=== PATIENT | female | born 1980 | race Hispanic/Latino ===

== ENCOUNTER 2022-04-17 00:46 | Emergency (ER) | payer BC ==
[2022-04-17 01:31] LABS: Hematocrit 42.5 % (36.0-45.0); Lymphocytes % 37.9 % (15.3-44.8); MPV 7.7 fL (7.6-11.3); RBC Red Blood Cell Count 4.93 M/uL (3.86-4.86)
[2022-04-17 01:39] LABS: Potassium 3.6 mmol/L (3.5-5.1); Troponin High Sensitivity 3.2 pg/mL (<58.9)
[2022-04-17] MEDS ORDERED: NA CHLORIDE 0.9% 1,000 ML ONE (03:08)
--- NOTE | 2022-04-17 04:57 | EDPHYS ---
Physician Documentation [facility] Name: Stephanie Burns Age: 41 yrs Sex: Female : 1980 Arrival Date: 04/17/2022 Time: 00:47 Bed 5 Private MD: ED Physician Kasi Morales [employer] STOCK CLERK: 04/17 00:59 LMP 03/2022 kd3 Historical: - Allergies: 00:59 No Known Allergies; kd3 - Home Meds: 00:59 None [Active]; kd3 - PMHx: 00:59 None; kd3 - PSHx: 00:59 None; kd3 - Immunization history:: Adult Immunizations up to date, Client reports receiving the 2nd dose of the Covid vaccine. - Social history:: Smoking status: unknown. Vital Signs: 00:56 BP 166 / 107; Pulse 101; Resp 18; Temp 97.7; Pulse Ox 100% on R/A; Weight 81.65 kg; kd3 Height 5 ft. 6 in. (167.64 cm); Pain 7/10; 01:46 BP 151 / 99; Pulse 93; Resp 13 S; Pulse Ox 100% on R/A; kl 03:36 BP 126 / 87; Pulse 90; Resp 20 S; Pulse Ox 99% on R/A; as6 04:23 BP 143 / 81; Pulse 95; Resp 13; Pulse Ox 100% on R/A; mw2 04:58 BP 122 / 75; Pulse 84; Resp 19 S; Pulse Ox 99% on R/A; as6 00:56 Body Mass Index 29.05 (81.65 kg, 167.64 cm) kd3 MDM: 04:56 Patient medically screened. [facility] [address] 04/17 00:56 Order name: Basic Metabolic Panel; Complete Time: 04:11 3 04/17 00:56 Order name: CBC with Diff; Complete Time: 04:11 3 04/17 00:56 Order name: Troponin HS; Complete Time: 04:11 3 04/17 00:56 Order name: XRAY Chest (1 view) 3 04/17 02:57 Order name: D-Dimer; Complete Time: 04:11 kdr 04/17 00:56 Order name: EKG; Complete Time: 00:57 3 04/17 00:56 Order name: Cardiac monitoring; Complete Time: 00:58 04/17 00:56 Order name: EKG - Nurse/Tech; Complete Time: 01:04/17 00:56 Order name: IV Saline Lock; Complete Time: 01:04/17 00:56 Order name: Labs collected and sent; Complete Time: 01:04/17 00:56 Order name: O2 Per Protocol; Complete Time: 00:58 04/17 00:56 Order name: O2 Sat Monitoring; Complete Time: 00:58 Administered Medications: 03:08 Drug: NS 0.9% 1000 ml Route: IV; Rate: 1 bolus; Site: right antecubital; aa9 05:10 Follow up: Response: No adverse reaction; IV Status: Completed infusion; IV Intake: aa9 1000ml Disposition Summary: 04/17/22 04:56 Discharge Ordered Location: Home kdr Problem: new kdr Symptoms: have improved kdr Condition: Stable kdr Diagnosis - Palpitations kdr - Shortness of breath kdr - Anxiety disorder, unspecified kdr - Paresthesia of skin kdr Followup: kdr - With: Private Physician - When: 2 - 3 days - Reason: If symptoms return, Further diagnostic work-up, Recheck today's complaints, Continuance of care, Re-evaluation by your physician Discharge Instructions: - Discharge Summary Sheet kdr - Shortness of Breath, Adult, Dquo-[id number]-Febe kdr - Palpitations, Hixq-[id number] kdr - Paresthesia, Teff-tg-Tobf kdr - Generalized Anxiety Disorder, Adult kdr Forms: - Medication Reconciliation Form kdr - Thank You Letter kdr Signatures: Dispatcher [employer] Kasi Callahan MD MD kdr Doucette, Kyli, RN RN kd3 Gricelda Morley, RN RN aa9
--- NOTE | 2022-04-17 04:57 | ER ---
Nurse's Notes [facility] Name: Stephanie Burns Age: 41 yrs Sex: Female : 1980 Arrival Date: 04/17/2022 Time: 00:47 Bed 5 Private MD: Diagnosis: Palpitations;Shortness of breath;Anxiety disorder, unspecified;Paresthesia of skin Presentation: 04/17 00:56 Chief complaint: Patient states: I was sleeping and about 30 or so minutes ago I woke kd3 up and i thought i was having issues breathing and my chest kind of hurt. my right arm and the right side of my neck kind of felt a little numb too. Coronavirus screen: Vaccine status: Patient reports receiving the 2nd dose of the covid vaccine. Ebola Screen: No symptoms or risks identified at this time. Initial Sepsis Screen: Does the patient meet any 2 criteria? No. Patient's initial sepsis screen is negative. Does the patient have a suspected source of infection? No. Patient's initial sepsis screen is negative. Risk Assessment: Do you want to hurt yourself or someone else?. Risk Assessment: Do you want to hurt yourself or someone else? Patient reports no desire to harm self or others. Onset of symptoms was April 17, 2022. 00:56 Method Of Arrival: Wheelchair kd3 00:56 Acuity: VANESSA 3 kd3 Triage Assessment: 00:59 General: Appears uncomfortable, Behavior is cooperative, anxious. Pain: Complains of kd3 pain in chest. Respiratory: Reports shortness of breath at rest Onset: The symptoms/episode began/occurred today, the patient has moderate shortness of breath. 00:59 Neuro: Level of Consciousness is awake, alert, obeys commands, Oriented to person, kd3 place, time, situation, Construction Materials Tester are equal bilaterally Moves all extremities. Full function Gait is steady, Speech Facial symmetry appears normal. DEADENER: 00:59 LMP 03/2022 kd3 Historical: - Allergies: 00:59 No Known Allergies; kd3 - Home Meds: 00:59 None [Active]; kd3 - PMHx: 00:59 None; kd3 - PSHx: 00:59 None; kd3 - Immunization history:: Adult Immunizations up to date, Client reports receiving the 2nd dose of the Covid vaccine. - Social history:: Smoking status: unknown. Screenin:01 Abuse screen: Denies threats or abuse. Denies injuries from another. Nutritional kd3 screening: No deficits noted. Tuberculosis screening: No symptoms or risk factors identified. Fall Risk None identified. Assessment: 01:17 General: Appears distressed, uncomfortable, Behavior is cooperative, anxious, crying. aa9 Pain: Complains of pain in chest and neck. Cardiovascular: Reports chest pain, shortness of breath, Patient's skin is warm and dry. Rhythm is sinus tachycardia Chest pain quality is pressure, sharp, began 1 hour prior to arrival. Respiratory: Airway is patent Respiratory effort is even, unlabored, Respiratory pattern is hyperventilation. Derm: Skin is flushed. 03:37 Reassessment: Patient is alert, oriented x 3, equal unlabored respirations, skin as6 warm/dry/pink. Patient states feeling better. 05:09 Respiratory:. Respiratory: Breath sounds are clear. aa9 Vital Signs: 00:56 BP 166 / 107; Pulse 101; Resp 18; Temp 97.7; Pulse Ox 100% on R/A; Weight 81.65 kg; kd3 Height 5 ft. 6 in. (167.64 cm); Pain 7/10; 01:46 BP 151 / 99; Pulse 93; Resp 13 S; Pulse Ox 100% on R/A; kl 03:36 BP 126 / 87; Pulse 90; Resp 20 S; Pulse Ox 99% on R/A; as6 04:23 BP 143 / 81; Pulse 95; Resp 13; Pulse Ox 100% on R/A; mw2 04:58 BP 122 / 75; Pulse 84; Resp 19 S; Pulse Ox 99% on R/A; as6 00:56 Body Mass Index 29.05 (81.65 kg, 167.64 cm) kd3 ED Course: 00:47 Patient arrived in ED. bp1 00:50 Renny Hughes RN is Primary Nurse. as6 00:54 Kasi Morales MD is Attending Physician. kdr 00:58 Triage completed. kd3 01:01 Arm band placed on right wrist. kd3 01:01 Patient has correct armband on for positive identification. Placed in gown. Bed in low kd3 position. Call light in reach. 01:16 Inserted saline lock: 18 gauge in right antecubital area, using aseptic technique. aa9 Blood collected. 01:17 Basic Metabolic Panel Sent. aa9 01:17 CBC with Diff Sent. aa9 01:17 Troponin HS Sent. aa9 01:22 XRAY Chest (1 view) In Process Unspecified. EDMS 05:09 No provider procedures requiring assistance completed. IV discontinued, intact, aa9 bleeding controlled, No redness/swelling at site. Pressure dressing applied. Administered Medications: 03:08 Drug: NS 0.9% 1000 ml Route: IV; Rate: 1 bolus; Site: right antecubital; aa9 05:10 Follow up: Response: No adverse reaction; IV Status: Completed infusion; IV Intake: aa9 1000ml Medication: 05:10 VIS not applicable for this client. aa9 Intake: 05:10 IV: 1000ml; Total: 1000ml. aa9 Outcome: 04:56 Discharge ordered by . kdr 05:09 Condition: stable aa9 05:09 Discharged to home ambulatory. aa9 05:09 Discharge instructions given to patient, significant other, Instructed on discharge instructions, follow up and referral plans. 05:11 Patient left the ED. aa9 Signatures: Dispatcher [employer] EDMS Florecita Oliveira, RN RN Kasi Polanco MD MD kdr [place], MyKena mw2 Qiana Mitchell Ashby, RN RN as6 Chery Marin RN RN kd3 Gricelda Morley RN RN aa9
[2022-04-17 05:19] VITALS: TEMP 97.7
[2022-04-17 05:29] VITALS: BP 122/75; O2SAT 99
--- NOTE | 2022-04-17 12:14 | RAD REPORT ---
EXAM DESCRIPTION: RAD - Chest Single View - 04/17/2022 1:21 am CLINICAL HISTORY: SOB TECHNIQUE: Frontal view of the chest. COMPARISON: No relevant prior studies available. FINDINGS: Lungs: Unremarkable. No consolidation. Pleural space: Unremarkable. No pneumothorax. Heart: Unremarkable. No cardiomegaly. Mediastinum: Unremarkable. Bones/joints: Unremarkable. IMPRESSION: No acute disease. Electronically signed by: Vance Lebron MD 04/17/2022 1:38 AM CDT Due to temporary technical issues with the PACS/Fluency reporting system, reports are being signed by the in house radiologist without review as a courtesy to ensure prompt reporting. The interpreting r adiologist is fully responsible for the content of the report.
--- NOTE | 2022-04-17 12:53 | EKG ---
Test Date: 2022-04-17 Test Time: 00:58:13 Laboratory Technical Specialist: MEASUREMENT RESULTS: Intervals: Rate: 102 NJ: 122 QRSD: 78 QT: 344 QTc: 448 [place]: P: NJ: 122 QRS: 188 T: 200 INTERPRETIVE STATEMENTS: Sinus tachycardia Right superior axis deviation Inferior infarct, age undetermined Abnormal ECG No previous ECG available for comparison Electronically Signed On 04-17-22 12:52:44 CDT by Adolfo Timmons
== END 2022-04-17 05:11 | disposition home or self-care (01) ==
LOC: ER 00:46
DX: R06.02 Shortness of breath (principal); R00.2 Palpitations; F41.9 Anxiety disorder, unspecified; R20.2 Paresthesia of skin
CPT/HCPCS: 93005; 85025; 80048; 36415; 85379; 84484; 71045; J7030

== ENCOUNTER 2024-02-10 23:00 | Emergency (ER) | payer BC ==
--- OUTSIDE RECORDS SUMMARY | 2024-02-10 23:04 | XMS REPORT | Continuity of Care Document ---
Author Name Unknown Address [address] [place] [address] [facility] thconnect Address [address] [place] [address] Care Team Providers Care Metal Hanging Helper Name Role Phone TAE BOWSER Primary Care Physician Unavailab le [email or web address]_Kadiyala_S Attending Clinician UnavailVance Baker MD Attending Clinician VANCE MCRAE Attending Clinician Unavailable WILFRED_GCBZW_Kadiyala_S Admitting Clinician UnavailVANCE Baker Admitting Clinician Unavailable Payers Payer Name Policy Type Policy Number Effective Date Expirati on Date Source Problems Condition Name Condition Details Condition Category Status Onset Date Resolution Date Last Treatment Date Treating Clinician Comments Source No known active problems No known active problems Disease [facility] Allergies, Adverse Reactions, Alerts Allergy Name Allergy Type Status Severity Reaction(s) Onset Date Inactive Date Treating Clinician Comments Source NO KNOWN ALLERGIE S Drug Class Active [facility] Social History Social Habit Start Date Stop Date Quantity Comments Source Exposure to SARS-CoV-2 (event) 2022-09-16 00:00:00 2022-09-26 21:49:00 Not sure [facility] Sex Ass[birth year] At 1980 00:00:00 1980 00:00:00 [facility] Smoking Status Start Date Stop Date Source Tobacco smoking consumption unknown [facility] Medications Ordered Medication Name Filled Medication Name Start Date Stop Date Current Medication? Ordering Clinician Indication Dosage Frequency Signature (SIG) Comments Components Source No known medications 2021-10 21:54: 21 No No known medication s [facility] Vital Signs Vital Name Observation Time Observation Value Comments Be chou Systolic blood pressure 2022-09-27 06:37:00 143 mm[Hg] [facility] Diastolic blood pressure 2022-09-27 06:37:00 83 mm[Hg] [facility] Heart rate 2022-09-27 06:37:00 104 /min [facility] Respiratory rate 2022-09-27 06:37:00 20 /min [facility] Oxygen saturation in Arterial blood by Pulse oximetry 2022-09-27 06:37:00 97 /min [facility] Body temperature 2022-09-27 03:52:00 37.5 Magali [facility] Body height 2022-09-27 03:52:00 167.6 cm [facility] Body weight 2022-09-27 03:52:00 78.472 kg [facility] BMI 2022-09-27 03:52:00 27.92 kg/m2 [facility] Procedures Procedure Date / Time Performed Performing Clinicia n Source EKG-12 LEAD 2022-09-27 06:39:11 Vance Mcrae [facility] XR CHEST 1 VW 2022-09-27 05:49:47 Vance Mcrae [facility] ACUTE CARE ARTERIAL BLOOD GAS 2022-09-27 04:33:00 Vance Mcrae [facility] POCT TEST 2022-09-27 04:26:00 Vance Mcrae [facility] LIPASE 2022-09-27 04:23:00 Vance Mcrae [facility] TROPONIN I 2022-09-27 04:23:00 Vance Mcrae [facility] COMP. METABOLIC PANEL ([id number]) 2022-09-27 04:23:00 Vance Mcrae [facility] CBC WITH DIFF 2022-09-27 04:23:00 Vance Mcrae [facility] D-DIMER 2022-09-27 04:23:00 Angelica Mcraefelixhui Lr [facility] N-TERMINAL PRO-BNP 2022-09-27 04:23:00 Elviajuan manuelAngelica gonzaleskarina Be [facility] NOTICE OF PRIVACY PRACTICES 2022-09-27 03:48:14 Doctor Unassigned, Mott [facility] CONSENT/REFUSAL FOR DIAGNOSIS AND TREATMENT 2022-09-27 03:46:24 Doctor Unassigned, Mott [facility] Encounters Start Date/Time End Date/Time Encounter Type Admission Type Attending Clinicians Care Facility Care Department Encounter ID Source 2023-08-16 00:00:00 2023-08-16 00:00:00 Outpatient GC_GCBZW_Ka diyala_S [facility] [id number] [facility] 2022-09-26 21:55:00 2022-09-27 00:39:00 Emergency Vance Mcrae [facility] [id number] [facility] 2022-09-26 21:55:00 2022-09-27 00:39:00 Emergency X VANCE MCRAE [facility] ERT [id number] [facility] Results Test Description Test Time Test Comments Results Result Co mments Source [facility] [id number] 05:11:49* Test Item Value Reference Range Interpretation Comments TROPONIN I (test code = 1029686906) 0.001 ng/mL See_Comment [Automated message] The system which generated this result transmitted reference range: <=0.034. The reference range was not used to interpret this result as normal/abnormal. SHWETHA (test code = SHWETHA) Reference (Normal) Range (defined by the 99th percentile reference limit): <= 0.034 ng/mL Note: Cardiac troponin begins to rise 3-4 hours after the onset of ischemia. Repeat in 4-6 hours if the sample was drawn within 3-4 hours of the onset of the symptom and found normal. Diagnosis of myocardial injury is made with acute changes in cTn concentrations with at least one serial sample above the 99th percentile upper reference limit (URL), taken together with the patient's clinical presentation. Biotin has been reported to cause a negative bias, interpret results relative to patient's use of biotin. Lab Interpretation (test code = 49998-0) Normal [facility] [id number] 05:08:53* Test Item Value Reference Range Interpretation Comme nts NT-proBNP (test code = 3724114906) 26 pg/mL See_Comment [Automated message] The system which generated this result transmitted reference range: <=125. The reference range was not used to interpret this result as normal/abnormal. SHWETHA (test code = SHWETHA) Biotin has been reported to cause a negative bias, interpret results relative to patient's use of biotin. Lab Interpretation (test code = 89436-9) Normal [facility] WITH [id number] 05:01:52* Test Item Value Reference Range Interpretation Comme nts WBC (test code = 6690-2) See_Comment [Automated [employer]] The system which generated this result transmitted reference range: 4.30 - 11.10 10*3/?L. The reference range was not used to interpret this result as normal/abnormal. RBC (test code = 789-8) See_Comment [Automated [employer]] The system which generated this result transmitted reference range: 3.93 - 5.25 10*6/?L. The reference range was not used to interpret this result as normal/abnormal. HGB (test code = 718-7) 14.2 g/dL 11.6-15.0 HCT (test code = 4544-3) 42.0 % 35.7-45.2 MCV (test code = 787-2) 87.9 fL 80.6-95.5 MCH (test code = 785-6) 29.7 pg 25.9-32.8 MCHC (test code = 786-4) 33.8 g/dL 31.6-35.1 RDW-SD (test code = 83784-7) 40.3 fL 39.0-49.9 RDW-CV (test code = 788-0) 12.6 % 12.0-15.5 PLT (test code = 777-3) See_Comment H [Automated messa ge] The system which generated this result transmitted reference range: 166 - 358 10*3/?L. The reference range was not used to interpret this result as normal/abnormal. MPV (test code = 97808-3) 9.9 fL 9.5-12.9 NRBC/100 WBC (test code = 5088928462) See_Comment [Automated me ssage] The system which generated this result transmitted reference range: 0.0 - 10.0 /100 WBCs. The reference range was not used to interpret this result as normal/abnormal. NRBC x10^3 (test code = 0238575491) See_Comment [Automated messa ge] The system which generated this result transmitted reference range: 10*3/?L. The reference range was not used to interpret this result as normal/abnormal. GRAN MAT (NEUT) % (test code = 770-8) 49.7 % IMM GRAN % (test code = 5841827536) 0.30 % LYMPH % (test code = 736-9) 39.5 % MONO % (test code = 5905-5) 8.7 % EOS % (test code = 713-8) 1.2 % BASO % (test code = 706-2) 0.6 % GRAN MAT x10^3(ANC) (test code = 0097036897) 4.66 10*3/uL 1.88-7.09 IMM GRAN x10^3 (test code = 2403701681) 0.03 10*3/uL 0.00-0.06 LYMPH x10^3 (test code = 731-0) 3.71 10*3/uL 1.32-3.29 H MONO x10^3 (test code = 742-7) 0.82 10*3/uL 0.33-0.92 EOS x10^3 (test code = 711-2) 0.11 10*3/uL 0.03-0.39 BASO x10^3 (test code = 704-7) 0.06 10*3/uL 0.01-0.07 Lab Interpretation (test code = 83120-8) Abnormal [facility]. METABOLIC PANEL (35229)2022-09-27 04:59:52* Test Item Value Reference Range Interpretation Comme nts NA (test code = 5433984942) 138 mmol/L 135-145 K (test code = 2296313226) 3.9 mmol/L 3.5-5.0 CL (test code = 8100436863) 105 mmol/L 98-108 CO2 TOTAL (test code = 7030684794) 23 mmol/L 23-31 AGAP (test code = 5900874315) 2-16 BUN (test code = 2637765231) 16 mg/dL 7-23 GLUCOSE (test code = 6903541020) 106 mg/dL 70-110 CREATININE (test code = 1845841621) 0.78 mg/dL 0.50-1.04 TOTAL BILI (test code = 6737688923) 0.5 mg/dL 0.1-1.1 CALCIUM (test code = 3664865865) 9.6 mg/dL 8.6-10.6 T PROTEIN (test code = 6099266663) 7.5 g/dL 6.3-8.2 ALBUMIN (test code = 1719889244) 4.6 g/dL 3.5-5.0 ALK PHOS (test code = 1844082301) 72 U/L 34-122 ALTv (test code = 1742-6) 25 U/L 5-35 AST(SGOT) (test code = 5076393488) 22 U/L 13-40 eGFR (test code = 8982544753) mL/min/1.73m2 SHWETHA (test code = SHWETHA) Association of Glomerular Filtration Rate (GFR) and Staging of Kidney Disease* + + +- +| GFR (mL/min/1.73 m2) ?| With Kidney Damage ?| ?Without Kidney Damage+ ------+ ----+ ------+| ?>90 ?| ?Stage one ?| ? Normal ?+ -+ + -+| ?60-89 ?| ?Stage two ?| ? Decreased GFR ? + + +- +| ?30-59 ?| ?Stage three ?| ? Stage three ? + + +- +| ?15-29 ?| ?Stage four ? | ? Stage four ?+ -+ + -+| ?<15 (or dialysis) ? ?| ?Stage five ? | ? Stage five ?+ -+ + -+ *Each stage assumes the associated GFR level has been in effect for at least three months. ?Stages 1 to 5, with or without kidney disease, indicate chronic kidney disease. Notes: Determination of stages one and two (with eGFR >59mL/min/1.73 m2) requires estimation of kidney damage for at least three months as defined by structural or functional abnormalities of the kidney, manifested by either:Pathological abnormalities or Markers of kidney damage (including abnormalities in the composition of the blood or urine or abnormalities in imaging tests). [facility] 04:59:32* Test Item Value Reference Range Interpretation Comme [facility] LIPASE (test code = 3372643983) 139 U/L 0-220 Lab Interpretation (test cod e = 69077-9) Normal [facility] [id number] 04:26:00* Test Item Value Reference Range Interpretation Comme nts POCT PREG (test code = 1605) Negative On board controls acceptable with C Line (test code = 3574) Present POCT PREG LOT # (test code = 3575) [id number] POCT PREG TEST DATE ( test code = 3576) 01/18/2024 Lab Interpretation (test cod e = 36826-9) Normal [facility]"
[2024-02-10] MEDS ORDERED: NA CHLORIDE 0.9% 500 ML ONE (23:24)
[2024-02-10] MEDS ORDERED: ASPIRIN 81 MG CHEWABLE TABLET ONE (23:24)
[2024-02-10] MEDS ORDERED: METOPROLOL TAR 50 MG TAB ONE (23:24)
[2024-02-10 23:39] LABS: Absolute Basophils 0.1 K/uL (0-0.5); Absolute Eosinophils 0.2 K/uL (0-0.5); Absolute Monocytes 0.8 K/uL (0.1-1.3); Absolute Neutrophil 5.1 K/uL (1.8-8.0); Basophils % 0.7 % (0-1.3); Hematocrit 40.7 % (36.0-45.0); Lymphocytes % 39.6 % (15.3-44.8); MCH 30.3 pg (27.0-35.0); MCHC 34.4 g/dL (32.0-36.0); MCV 88.2 fL (80-100); MPV 7.4 fL (7.6-11.3); Monocytes % 7.4 % (3.3-12.3); Neutrophils % 50.3 % (41.7-73.7); Nucleated Red Blood Cells % 0.1 % (0-0); Platelets 375 thou/uL (152-406); RBC Red Blood Cell Count 4.61 M/uL (3.86-4.86); Red Cell Distribution Width 12.6 % (12.1-15.2)
[2024-02-10 23:59] LABS: ALT/SGPT 37 U/L (13-56); AST/SGOT 18 U/L (15-37); Albumin 3.6 g/dL (3.4-5.0); Alkaline Phosphatase 63 U/L (45-117); Anion Gap 9.3 mEq/L (5.0-15.0); BUN Blood Urea Nitrogen 15 mg/dL (7-18); Bicarbonate 27 mEq/L (21-32); Bilirubin Total 0.4 mg/dL (0.2-1.0); Globulin 3.7 g/dL (2.3-3.5); Glomerular Filtration Rate 78 ml/min (=/>90); Glucose Level 108 mg/dL (74-106); Lipase 55 U/L (13-75); Magnesium 2.3 mg/dL (1.6-2.4); NT PRO-BNP 18 pg/mL (<125); Potassium 3.3 mEq/L (3.5-5.1); Protein, Total 7.3 g/dL (6.4-8.2); Sodium Level 137 mEq/L (136-145)
[2024-02-11 00:24] LABS: Bilirubin Direct < 0.1 mg/dL (0-0.2); Bilirubin Indirect, Calculated ND mg/dL (0.2-0.8); Troponin High Sensitivity < 3.0 pg/mL (<58.9)
[2024-02-11] MEDS ORDERED: POTASSIUM 25 MEQ EFFERV TAB ONE (00:41)
--- NOTE | 2024-02-11 00:44 | EDPHYS ---
Physician Documentation [facility] Name: Stephanie Teixeira Age: 43 yrs Sex: Female : 1980 Arrival Date: 02/10/2024 Time: 23:00 Bed 4 Private MD: ED Physician Pepe Jama HPI: 02/10 00:39 This 43 yrs old Female presents to ER via Ambulatory with complaints of tres Palpitations. 00:39 The patient presents with a history of heart racing. Context: The symptoms occur at [facility] rest. Onset: The symptoms/episode began/occurred just prior to arrival. Duration: The patient or guardian reports a single episode, that lasted 20 second(s). Modifying factors: The symptoms are aggravated by nothing. The symptoms are alleviated by nothing. Associated signs and symptoms: Pertinent positives: anxiety. Severity of symptoms: At their worst the symptoms were mild moderate in the emergency department the symptoms have improved moderately. The patient has experienced similar episodes in the past, several times. 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 - Infectious Disease History:: Denies. - Social history:: Smoking status: Patient denies any tobacco usage or history of. ROS: 02/10 00:40 Constitutional: Negative for fever, chills, and weight loss, Eyes: Negative for injury, tres pain, redness, and discharge, ENT: Negative for injury, pain, and discharge, Neck: Negative for injury, pain, and swelling, Respiratory: Negative for shortness of breath, cough, wheezing, and pleuritic chest pain, Abdomen/GI: Negative for abdominal pain, nausea, vomiting, diarrhea, and constipation, Back: Negative for injury and pain, : Negative for injury, bleeding, discharge, and swelling, MS/Extremity: Negative for injury and deformity, Skin: Negative for injury, rash, and discoloration, Neuro: Negative for headache, weakness, numbness, tingling, and seizure, Psych: Negative for depression, anxiety, suicide ideation, homicidal ideation, and hallucinations, Allergy/Immunology: Negative for hives, rash, and allergies, Endocrine: Negative for neck swelling, polydipsia, polyuria, polyphagia, and marked weight changes, Hematologic/Lymphatic: Negative for swollen nodes, abnormal bleeding, and unusual bruising, Cardiovascular: Positive for palpitations, Exam: 00:40 Constitutional: This is a well developed, well nourished patient who is awake, alert, tres and in no acute distress. Head/Face: Normocephalic, atraumatic. Eyes: Pupils equal round and reactive to light, extra-ocular motions intact. Lids and lashes normal. Conjunctiva and sclera are non-icteric and not injected. Cornea within normal limits. Periorbital areas with no swelling, redness, or edema. ENT: Nares patent. No nasal discharge, no septal abnormalities noted. Tympanic membranes are normal and external auditory canals are clear. Oropharynx with no redness, swelling, or masses, exudates, or evidence of obstruction, uvula midline. Mucous membranes moist. Neck: Trachea midline, no thyromegaly or masses palpated, and no cervical lymphadenopathy. Supple, full range of motion without nuchal rigidity, or vertebral point tenderness. No Meningismus. Chest/axilla: Normal chest wall appearance and motion. Nontender with no deformity. No lesions are appreciated. Cardiovascular: Regular rate and rhythm with a normal S1 and S2. No gallops, murmurs, or rubs. Normal PMI, no JVD. No pulse deficits. Respiratory: Lungs have equal breath sounds bilaterally, clear to auscultation and percussion. No rales, rhonchi or wheezes noted. No increased work of breathing, no retractions or nasal flaring. Abdomen/GI: Soft, non-tender, with normal bowel sounds. No distension or tympany. No guarding or rebound. No evidence of tenderness throughout. Back: No spinal tenderness. No costovertebral tenderness. Full range of motion. Female : Normal external genitalia. Skin: Warm, dry with normal turgor. Normal color with no rashes, no lesions, and no evidence of cellulitis. MS/ Extremity: Pulses equal, no cyanosis. Neurovascular intact. Full, normal range of motion. Neuro: Awake and alert, GCS 15, oriented to person, place, time, and situation. Cranial nerves II-XII grossly intact. Motor strength 5/5 in all extremities. Sensory grossly intact. Cerebellar exam normal. Normal gait. Psych: Awake, alert, with orientation to person, place and time. Behavior, mood, and affect are within normal limits. 00:41 Musculoskeletal/extremity: DVT Exam: No signs of deep vein thrombosis. no pain, no tres swelling, no tenderness, negative Homans' sign noted on exam, no appreciated bluish discoloration, no erythema, no increased warmth, 00:45 ECG was reviewed by the Attending Physician. [facility] Vital Signs: 02/09 23:07 BP 158 / 109; Pulse 89; Resp 18; Temp 97.5(TE); Pulse Ox 99% on R/A; Weight 77.11 kg; cm10 Height 5 ft. 6 in. ; Pain 0/10; 02/10 00:12 BP 140 / 90; Pulse 88; Resp 18; Pulse Ox 100% on R/A; Pain 0/10; [facility] 00:52 BP 140 / 92; Pulse 79; Resp 18; Temp 98.4(O); Pulse Ox 98% on R/A; Pain 0/10; 8 02/09 23:07 Body Mass Index 27.44 (77.11 kg, 167.64 cm) cm10 02/09 23:07 Pain Scale: Adult cm10 02/10 00:12 Pain Scale: Adult jh8 00:52 Pain Scale: Adult jh8 MDM: 02/09 23:12 Patient medically screened. [facility] 02/10 00:40 MISTY Risk Score: Total Score = 0. Differential diagnosis: arrythmia, dehydration, tres stress disorder. Data reviewed: vital signs, nurses notes, lab test result(s), EKG, radiologic studies, plain films. Consideration of Admission/Observation Escalation of care including admission/observation considered. I considered the following discharge prescriptions or medication management in the emergency department Medications were administered in the Emergency Department. See MAR. Independent interpretation of the following test(s) in the Emergency Department EKG: See my EKG interpretation above. Test considered but Not performed: Ultrasound NO 2 D ECHO. Care significantly affected by the following chronic conditions: ANXIETY. 02/09 23:13 Order name: Basic Metabolic Panel; Complete Time: 00:38 [facility] 02/09 23:13 Order name: CBC with Diff; Complete Time: 00:14 [facility] 02/09 23:13 Order name: LFT's; Complete Time: 00:38 [facility] 02/09 23:13 Order name: Magnesium; Complete Time: 00:38 [facility] 02/09 23:13 Order name: NT PRO-BNP; Complete Time: 00:38 [facility] 02/09 23:13 Order name: Troponin HS; Complete Time: 00:38 [facility] 02/09 23:13 Order name: Lipase; Complete Time: 00:38 [facility] 02/10 00:38 Order name: D-Dimer; Complete Time: 00:51 [facility] 02/09 23:13 Order name: XRAY Chest (1 view) [facility] 02/09 23:13 Order name: EKG; Complete Time: 23:14 [facility] 02/09 23:13 Order name: Cardiac monitoring; Complete Time: 23:55 [facility] 02/09 23:13 Order name: EKG - Nurse/Tech; Complete Time: 23:55 [facility] 02/09 23:13 Order name: IV Saline Lock; Complete Time: 23:55 [facility] 02/09 23:13 Order name: Labs collected and sent; Complete Time: 23:55 [facility] 02/09 23:13 Order name: O2 Per Protocol; Complete Time: 23:55 [facility] 02/09 23:13 Order name: O2 Sat Monitoring; Complete Time: 23:55 [facility] EC:45 Rate is 91 beats/min. Rhythm is regular. QRS [place] is Normal. MI interval is normal. QRS tres interval is normal. QT interval is normal. No Q waves. T waves are Normal. No ST changes noted. Clinical impression: NSR w/ Non-specific ST/T Changes and No evidence of ischemia. Interpreted by me. Reviewed by me. Administered Medications: 02/09 23:00 Drug: NS 0.9% IV 500 ml IV at bolus once Route: IV; Rate: bolus; Site: left antecubital;[facility] 02/10 00:11 Follow up: Response: No adverse reaction; IV Status: Completed infusion [facility] 02/09 23:15 Drug: Metoprolol PO 50 mg PO once Route: PO; [facility] 02/10 00:12 Follow up: Response: No adverse reaction [facility] 02/09 23:15 Drug: Aspirin PO Chewable Tablet 162 mg PO once Route: PO; [facility] 02/10 00:11 Follow up: Response: No adverse reaction [facility] 00:46 Drug: Potassium PO Effervescent Tablet 50 mEq PO once; dissolve in 4 ounces of water or km8 juice Route: PO; 00:47 Follow up: Response: Medication administered at discharge. km8 Disposition Summary: 02/11/24 00:43 Discharge Ordered Notes: Location: Home tres Problem: new tres Symptoms: have improved tres Condition: Stable tres Diagnosis - Palpitations tres - Tachycardia, unspecified tres - Cardiac arrhythmia, unspecified tres - Anxiety disorder, unspecified tres - Hypokalemia tres Followup: tres - With: Private Physician - When: 2 - 3 days - Reason: Recheck today's complaints, Continuance of care, Re-evaluation by your physician Followup: tres - With: Renetta Lux MD - When: 2 - 3 days - Reason: Recheck today's complaints, Continuance of care, Re-evaluation by your physician Discharge Instructions: - Discharge Summary Sheet tres - Potassium Content of Foods tres - Palpitations tres - Aspirin and Your Heart tres - Palpitations, [id number]-[id number] tres - Hypokalemia tres - Managing Anxiety, Adult tres Forms: - Medication Reconciliation Form tres - Antibiotic Education tres - Prescription Opioid Use tres - Patient Portal Instructions tres - Leadership Thank You Letter tres Prescriptions: - Toprol XL 25 mg Oral Tablet - take 1 tablet ORAL route once daily; 20 tablet; Refills: 0, Product Selection tres Permitted Signatures: Dispatcher [employer] EDPepe Maldonado MD MD cha Martinez, Clarissa, RN RN cm10 Joanna Singh, RN RN km8 Usman Soler, RN RN jh8 Corrections: (The following items were deleted from the chart) 02/09 23:14 23:14 BASIC METABOLIC PANEL+C.LAB.BRZ ordered. EDMS EDMS 23:14 23:14 CBC+H.LAB.BRZ ordered. EDMS EDMS 23:14 23:14 HEPATIC FUNCTION+C.LAB.BRZ ordered. EDMS EDMS 23:14 23:14 MAGNESIUM+C.LAB.BRZ ordered. EDMS EDMS 23:14 23:14 PROBNP+C.LAB.BRZ ordered. EDMS EDMS 23:14 23:14 PROTIME (+INR)+COAG.LAB.BRZ ordered. EDMS EDMS 23:14 23:14 Troponin High Sensitivity+C.LAB.BRZ ordered. EDMS EDMS 23:14 23:14 LIPASE+C.LAB.BRZ ordered. EDMS EDMS
--- NOTE | 2024-02-11 00:44 | ER ---
Nurse's Notes [facility] Name: Stephanie Teixeira Age: 43 yrs Sex: Female : 1980 Arrival Date: 02/10/2024 Time: 23:00 Bed 4 Private MD: Diagnosis: Palpitations;Tachycardia, unspecified;Cardiac arrhythmia, unspecified;Anxiety disorder, unspecified;Hypokalemia Presentation: 02/09 23:07 Chief complaint: Patient states: Laying in bed and started having palpitations. Pt cm10 reports that she was having shortness of breath when she was having the palpitations. No chest pain. Coronavirus screen: Client denies travel out of the [place] in the last 14 days. At this time, the client does not indicate any symptoms associated with coronavirus-19. Ebola Screen: Patient denies travel to an Ebola-affected area in the 21 days before illness onset. No symptoms or risks identified at this time. Initial Sepsis Screen: Does the patient meet any 2 criteria? No. Patient's initial sepsis screen is negative. Does the patient have a suspected source of infection? No. Patient's initial sepsis screen is negative. Risk Assessment: Do you want to hurt yourself or someone else? Patient reports no desire to harm self or others. Onset of symptoms was February 10, 2024. 23:07 Method Of Arrival: Ambulatory cm10 23:07 Acuity: VANESSA 3 cm10 Triage Assessment: 23:08 General: Appears in no apparent distress. comfortable, Behavior is calm, cooperative. cm10 Pain: Denies pain. Neuro: No deficits noted. Level of Consciousness is awake, alert, Oriented to person, place, time, situation, Appropriate for age. 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 - Infectious Disease History:: Denies. - Social history:: Smoking status: Patient denies any tobacco usage or history of. Screenin/24 00:53 [facility] ED Fall Risk Assessment (Adult) History of falling in the last 3 months, 8 including since admission No falls in past 3 months (0 pts) Confusion or Disorientation No (0 pts) Intoxicated or Sedated No (0 pts) Impaired Gait No (0 pts) Mobility Assist Device Used No (0 pt) Altered Elimination No (0 pt) Score/Fall Risk Level 0 - 2 = Low Risk. Abuse screen: Denies threats or abuse. Denies injuries from another. Nutritional screening: No deficits noted. Tuberculosis screening: No symptoms or risk factors identified. Assessment: 02/09 23:33 General: Appears in no apparent distress. comfortable, well groomed, Behavior is calm, jh8 cooperative, Reports feeling ill for 0-12 hours. Pain: Denies pain. Neuro: Level of Consciousness is awake, alert, obeys commands, Oriented to person, place, time, situation, Reports. Cardiovascular: Capillary refill < 3 seconds Patient's skin is warm and dry. Rhythm is sinus rhythm. Respiratory: Airway is patent Respiratory effort is even, unlabored, Respiratory pattern is regular, symmetrical. Vital Signs: 23:07 BP 158 / 109; Pulse 89; Resp 18; Temp 97.5(TE); Pulse Ox 99% on R/A; Weight 77.11 kg; cm10 Height 5 ft. 6 in. ; Pain 0/10; 02/10 00:12 BP 140 / 90; Pulse 88; Resp 18; Pulse Ox 100% on R/A; Pain 0/10; jh8 00:52 BP 140 / 92; Pulse 79; Resp 18; Temp 98.4(O); Pulse Ox 98% on R/A; Pain 0/10; 8 02/09 23:07 Body Mass Index 27.44 (77.11 kg, 167.64 cm) cm10 02/09 23:07 Pain Scale: Adult cm10 02/10 00:12 Pain Scale: Adult jh8 00:52 Pain Scale: Adult jh8 ED Course: 02/09 23:06 Patient arrived in ED. cm10 23:08 Triage completed. cm10 23:08 Arm band placed on Patient placed in an exam room, on a stretcher. cm10 23:12 Pepe Jama MD is Attending Physician. [facility] 23:22 EKG done, by ED staff, reviewed by Pepe Jama MD. 8 23:27 XRAY Chest (1 view) In Process Unspecified. EDMS 23:31 Patient has correct armband on for positive identification. Placed in gown. Bed in low [facility] position. Call light in reach. Side rails up X 1. Adult w/ patient. Provided Education on: iv, labs and meds, verbalized understanding. 23:31 No provider procedures requiring assistance completed. Inserted saline lock: 20 gauge jh8 in left antecubital area, using aseptic technique. 23:32 Client placed on continuous cardiac and pulse oximetry monitoring. NIBP monitoring [facility] applied. potline monitor on. Pulse ox on. NIBP on. Door closed. Warm blanket given. 02/10 00:42 Renetta Lux MD is Referral Physician. [facility] 00:53 IV discontinued. [facility] Administered Medications: 02/09 23:00 Drug: NS 0.9% IV 500 ml IV at bolus once Route: IV; Rate: bolus; Site: left antecubital;[facility] 02/10 00:11 Follow up: Response: No adverse reaction; IV Status: Completed infusion [facility] 02/09 23:15 Drug: Metoprolol PO 50 mg PO once Route: PO; [facility] 02/10 00:12 Follow up: Response: No adverse reaction [facility] 02/09 23:15 Drug: Aspirin PO Chewable Tablet 162 mg PO once Route: PO; [facility] 02/10 00:11 Follow up: Response: No adverse reaction [facility] 00:46 Drug: Potassium PO Effervescent Tablet 50 mEq PO once; dissolve in 4 ounces of water or km8 juice Route: PO; 00:47 Follow up: Response: Medication administered at discharge. [facility] Medication: 00:53 VIS not applicable for this client. [facility] Outcome: 00:43 Discharge ordered by . [facility] 00:53 Discharged to home ambulatory, [facility] 00:53 Condition: stable 00:53 Discharge instructions given to patient, Instructed on discharge instructions, follow up and referral plans. Demonstrated understanding of instructions, follow-up care, medications, Prescriptions given X 1, 00:54 Patient left the ED. [facility] Signatures: Dispatcher [employer] EDPepe Maldonado MD MD cha Martinez, Clarissa, RN RN cm10 Joanna Singh RN RN km8 Usman Soler RN RN jh
[2024-02-11 01:06] VITALS: BP 140/92; TEMP 98.4; O2SAT 98
--- NOTE | 2024-02-11 14:26 | RAD REPORT ---
EXAM DESCRIPTION: RAD - Chest Single View - 02/10/2024 11:26 pm CLINICAL HISTORY: PALPITATIONS. COMPARISON: None. TECHNIQUE: Single view AP chest radiograph(s). FINDINGS: No pulmonary infiltrate or edema identified. No pleural effusion. No pneumothorax. Nonenla rged cardiomediastinal silhouette. No significant osseous abnormality. IMPRESSION: No acute cardiopulmonary abnormality identified by radiograph. Electronically signed by: Laurie Devi MD 02/10/2024 11:40 PM CDT Due to temporary technical issues with the PACS/Fluency reporting system, reports are being signed by the in house radiologists without review as a courtesy to insure prompt reporting. The interpreting radiologist is fully responsible for the content of the report
--- NOTE | 2024-02-12 16:47 | EKG ---
Test Date: 2024-02-10 Test Time: 23:16:38 Ceiling Insulation Blower: HAYLIE MEASUREMENT RESULTS: Intervals: Rate: 91 AL: 152 QRSD: 78 QT: 368 QTc: 452 [place]: P: 37 AL: 152 QRS: 20 T: 15 INTERPRETIVE STATEMENTS: Normal sinus rhythm Normal ECG No previous ECG available for comparison Electronically Signed On 02-12-24 16:42:27 CDT by Joey Byrd
== END 2024-02-11 00:54 | disposition home or self-care (01) ==
LOC: ER 23:00
DX: R00.0 Tachycardia, unspecified (principal); I49.9 Cardiac arrhythmia, unspecified; F41.9 Anxiety disorder, unspecified; E87.6 Hypokalemia
CPT/HCPCS: 93005; 85025; 80048; 36415; 83735; 85379; 80076; 84484; 83690; 83880; 71045; J7040; 85610; 96360; 99285

== ENCOUNTER 2024-02-21 02:43 | Emergency (ER) | payer BC ==
--- OUTSIDE RECORDS SUMMARY | 2024-02-21 02:46 | XMS REPORT | Continuity of Care Document ---
Author Name Unknown Address [address] [facility] [address] [place] [address] [facility] thconnect Address [address] [facility] [place] [address] Care Team Providers Care Greenhouse Instructor Name Role Phone TAE BOWSER Primary Care Physician Unavailab jin [email or web address]_S Attending Clinician UnavailBrittani Baker MD Attending Clinician BRITTANI MCRAE Attending Clinician Unavailable ARMIN BOWSER Attending Clinician Unavaildomi cronin [email or web address]_S Admitting Clinician UnavailBRITTANI Baker Admitting Clinician Unavailable Payers Payer Name Policy Type Policy Number Effective Date Expirati on Date Source Problems Condition Name Condition Details Condition Category Status Onset Date Resolution Date Last Treatment Date Treating Clinician Comments Source No known active problems No known active problems Disease Univers [facility] Allergies, Adverse Reactions, Alerts Allergy Name Allergy Type Status Severity Reaction(s) Onset Date Inactive Date Treating Clinician Comments Source NO KNOWN ALLERGIE S Drug Class Active [facility] Social History Social Habit Start Date Stop Date Quantity Comments Source Exposure to SARS-CoV-2 (event) 2022-09-16 00:00:00 2022-09-26 21:49:[address] [facility] Sex Ass[birth year] At 1980 00:00:00 1980 00:00:00 [facility] Smoking Status Start Date Stop Date Source Tobacco smoking consumption unknown [facility] Medications Ordered Medication Name Filled Medication Name Start Date Stop Date Current Medication? Ordering Clinician Indication Dosage Frequency Signature (SIG) Comments Components Source No known medications 2021-10 21:54: 21 No No known medication [facility] Vital Signs Vital Name Observation Time Observation Value Comments S effie Systolic blood pressure 2022-09-27 06:37:00 143 mm[Hg] [facility] Diastolic blood pressure 2022-09-27 06:37:00 83 mm[Hg] [facility] Heart rate 2022-09-27 06:37:00 104 /min [facility] Respiratory rate 2022-09-27 06:37:00 20 /min [facility] Oxygen saturation in Arterial blood by Pulse oximetry 2022-09-27 06:37:00 97 /min [facility] Body temperature 2022-09-27 03:52:[address] [facility] Body height 2022-09-27 03:52:00 167.6 cm [facility] Body weight 2022-09-27 03:52:00 78.472 kg [facility] BMI 2022-09-27 03:52:00 27.92 kg/m2 [facility] Procedures Procedure Date / Time Performed Performing Clinicia n Source EKG-12 LEAD 2022-09-27 06:39:11 Brittani Mcrae [facility] XR CHEST 1 VW 2022-09-27 05:49:47 Brittani Mcrae [facility] ACUTE CARE ARTERIAL BLOOD GAS 2022-09-27 04:33:[address] [facility] POCT TEST 2022-09-27 04:26:[address] [facility] LIPASE 2022-09-27 04:23:00 Brittani Mcrae [facility] TROPONIN I 2022-09-27 04:23:00 Brittani Mcrae [facility] COMP. METABOLIC PANEL (33539) 2022-09-27 04:23:[address] [facility] CBC WITH DIFF 2022-09-27 04:23:00 Brittani Mcrae [facility] D-DIMER 2022-09-27 04:23:00 Brittani Mcrae [facility] N-TERMINAL PRO-BNP 2022-09-27 04:23:[address] [facility] NOTICE OF PRIVACY PRACTICES 2022-09-27 03:48:14 Doctor Unassigned, [place] [facility] CONSENT/REFUSAL FOR DIAGNOSIS AND TREATMENT 2022-09-27 03:46:24 Doctor Unassigned, [place] [facility] Encounters Start Date/Time End Date/Time Encounter Type Admission Type Attending [facility] Care Facility Care Department Encounter ID Source 2023-08-16 00:00:00 2023-08-16 00:00:00 Outpatient GC_GCBZW_Ka dionia_S [facility] [id number] [facility] 2022-09-26 21:55:00 2022-09-27 00:39:00 Emergency Brittani Mcrae [facility] [id number] [facility] 2022-09-26 21:55:00 2022-09-27 00:39:00 Emergency X BRITTANI MCRAE RUST ERT [id number] [facility] 2022-04-17 18:41:00 2022-04-17 23:43:00 Emergency E ARMIN BOWSER [facility] [id number] [facility] Results Test Description Test Time Test Comments Results Result Co mments Source [facility] [id number] 05:11:49* Test Item Value Reference Range Interpretation Comments TROPONIN I (test code = 0114840326) 0.001 ng/mL See_Comment [Automated message] The system [...] of biotin. Lab Interpretation (test code = 80570-0) Normal [facility] [id number] 05:08:53* Test Item Value Reference Range Interpretation Comme nts NT-proBNP (test code = 1331173072) 26 pg/mL See_Comment [Automated message] The system which generated this result transmitted reference range: <=125. The reference range was not used to interpret this result as normal/abnormal. SHWETHA (test code = SHWETHA) Biotin has been reported to cause a negative bias, interpret results relative to patient's use of biotin. Lab Interpretation (test code = 43647-0) Normal [facility] WITH [id number] 05:01:52* Test Item Value Reference Range Interpretation Comme nts WBC (test code = 6690-2) See_Comment [Automated AirXP] The system which generated this result transmitted reference range: 4.30 - 11.10 10*3/?L. The reference range was not used to interpret this result as normal/abnormal. RBC (test code = 789-8) See_Comment [Automated Nept[employer] Spotster] The system which generated this result transmitted [...] 33.8 g/dL 31.6-35.1 RDW-SD (test code = 93170-0) 40.3 fL 39.0-49.9 RDW-CV (test code = 788-0) 12.6 % 12.0-15.5 PLT (test code = 777-3) See_Comment H [Automated messa ge] The system which generated this result transmitted reference range: 166 - 358 10*3/?L. The reference range was not used to interpret this result as normal/abnormal. MPV (test code = 02482-0) 9.9 fL 9.5-12.9 NRBC/100 WBC (test code = 9457767244) See_Comment [Automated Digital Shadows ssage] The system which generated this result transmitted reference range: 0.0 - 10.0 /100 WBCs. The reference range was not used to interpret this result as normal/abnormal. NRBC x10^3 (test code = 9183622615) See_Comment [Automated messa ge] The system which generated this result transmitted reference range: 10*3/?L. The reference range was not used to interpret this result as normal/abnormal. GRAN MAT (NEUT) % (test code = 770-8) 49.7 % IMM GRAN % (test code = 2335791490) 0.30 % LYMPH % (test code = 736-9) 39.5 % MONO % (test code = 5905-5) 8.7 % EOS % (test code = 713-8) 1.2 % BASO % (test code = 706-2) 0.6 % GRAN MAT x10^3(ANC) (test code = 0908791549) 4.66 10*3/uL 1.88-7.09 IMM GRAN x10^3 (test code = 1803463730) 0.03 10*3/uL 0.00-0.06 LYMPH x10^3 (test code = 731-0) 3.71 10*3/uL 1.32-3.29 H MONO x10^3 (test code = 742-7) 0.82 10*3/uL 0.33-0.92 EOS x10^3 (test code = 711-2) 0.11 10*3/uL 0.03-0.39 BASO x10^3 (test code = 704-7) 0.06 10*3/uL 0.01-0.07 Lab Interpretation (test code = 38302-2) Abnormal [facility] PAN[facility] (52636)2022-09-27 04:59:52* Test Item Value Reference Range Interpretation Comme nts NA (test code = 6180271182) 138 mmol/L 135-145 K (test code = 0961585664) 3.9 mmol/L 3.5-5.0 CL (test code = 9759773685) 105 mmol/L 98-108 CO2 TOTAL (test code = 3728035877) 23 mmol/L 23-31 AGAP (test code = 1717735448) 2-16 BUN (test code = 8819039844) 16 mg/dL 7-23 GLUCOSE (test code = 6638927841) 106 mg/dL 70-110 CREATININE (test code = 7174726177) 0.78 mg/dL 0.50-1.04 TOTAL BILI (test code = 6998705756) 0.5 mg/dL 0.1-1.1 CALCIUM (test code = 0314176103) 9.6 mg/dL 8.6-10.6 T PROTEIN (test code = 4905776249) 7.5 g/dL 6.3-8.2 ALBUMIN (test code = 3300122023) 4.6 g/dL 3.5-5.0 ALK PHOS (test code = 7791852440) 72 U/L 34-122 ALTv (test code = 1742-6) 25 U/L 5-35 AST(SGOT) (test code = 9969425263) 22 U/L 13-40 eGFR (test code = 8293392926) mL/min/1.73m2 SHWETHA (test code = SHWETHA) Association [...] or urine or abnormalities in imaging tests). [facility] 04:59:32* Test Item Value Reference Range Interpretation Comme [facility] LIPASE (test code = 6857448069) 139 U/L 0-220 Lab Interpretation (test cod e = 55220-6) Normal [facility] [id number] 04:26:00* Test Item Value Reference Range Interpretation Comme nts POCT PREG (test code = 1605) Negative On board controls acceptable with C Line (test code = 3574) Present POCT PREG LOT # (test code = 3575) [id number] POCT PREG TEST DATE ( test code = 3576) 01/18/2024 Lab Interpretation (test cod e = 44426-8) Normal [facility]"
[2024-02-21 03:15] LABS: Absolute Basophils 0.1 K/uL (0-0.5); Absolute Eosinophils 0.2 K/uL (0-0.5); Absolute Monocytes 0.9 K/uL (0.1-1.3); Absolute Neutrophil 5.4 K/uL (1.8-8.0); Basophils % 0.7 % (0-1.3); Eosinophils % 1.8 % (0-4.4); Hematocrit 40.8 % (36.0-45.0); Hemoglobin 14.4 g/dL (12.0-15.0); Lymphocytes % 31.4 % (15.3-44.8); MCH 30.9 pg (27.0-35.0); MCHC 35.1 g/dL (32.0-36.0); MPV 7.8 fL (7.6-11.3); Monocytes % 9.2 % (3.3-12.3); Neutrophils % 56.9 % (41.7-73.7); Nucleated Red Blood Cells % 0.2 % (0-0); Platelets 358 thou/uL (152-406); RBC Red Blood Cell Count 4.64 M/uL (3.86-4.86)
[2024-02-21 03:22] LABS: PT Prothrombin Time 11.5 SECONDS (9.5-12.5); Protime INR 1.05
[2024-02-21] MEDS ORDERED: LORazepam 2 MG/ML VIAL ONE (03:30)
[2024-02-21 03:34] LABS: Anion Gap 9.5 mEq/L (5.0-15.0); BUN Blood Urea Nitrogen 18 mg/dL (7-18); Bicarbonate 26 mEq/L (21-32); Glomerular Filtration Rate 88 ml/min (=/>90); Glucose Level 106 mg/dL (74-106); Magnesium 2.2 mg/dL (1.6-2.4); NT PRO-BNP 22 pg/mL (<125); Potassium 3.5 mEq/L (3.5-5.1); Sodium Level 139 mEq/L (136-145)
[2024-02-21 03:43] LABS: Troponin High Sensitivity < 3.0 pg/mL (<58.9)
[2024-02-21 03:55] LABS: Urine Bacteria None Seen /HPF (<20); Urine Culture Reflex Order NOT NEEDED; Urine Micro Reflex YN NO BILL MICROSCOPIC; Urine Mucus Slight /HPF (None Seen); Urine WBC <5 /HPF (<5)
[2024-02-21 03:56] LABS: Barbiturates NEGATIVE (NEGATIVE); Benzodiazepines NEGATIVE (NEGATIVE); Cocaine NEGATIVE (NEGATIVE); METHAMPHETAM NEGATIVE (NEGATIVE); Methadone NEGATIVE (NEGATIVE); Opiates NEGATIVE (NEGATIVE); Phencyclidine NEGATIVE (NEGATIVE); THC Cannibis NEGATIVE (NEGATIVE)
--- NOTE | 2024-02-21 04:26 | EDPHYS ---
Physician Documentation [facility] Name: Stephanie Teixeira Age: 43 yrs Sex: Female : 1980 Arrival Date: 02/21/2024 Time: 02:43 Bed 17 Private MD: ED Physician Pepe Jama HPI: 02/20 03:05 This 43 yrs old Female presents to ER via Ambulatory with complaints of cp Shortness Of Breath. 03:05 The patient has shortness of breath at rest. Onset: The symptoms/episode began/occurred cp this morning upon awakening. Patient is a 43-year-old female with past medical history significant for anxiety who presents to the emergency department with complaints of shortness of breath. Patient reports she awoke this morning and felt short of breath. Patient also reports that her heart felt like it was racing she did have some chest discomfort. 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 - Infectious Disease History:: Denies. - Social history:: Smoking status: Patient denies any tobacco usage or history of. Patient/guardian denies using alcohol, street drugs. ROS: 03:10 Cardiovascular: Positive for chest pain, palpitations, cp 03:10 Respiratory: Positive for shortness of breath, at rest. Negative for cough, wheezing, cp 03:10 Abdomen/GI: Negative for abdominal pain, vomiting, diarrhea, constipation, Exam: 03:13 Constitutional: The patient appears in no acute distress, alert, awake, cp non-diaphoretic, non-toxic, well developed, well nourished, 03:13 Head/Face: Normocephalic, atraumatic. cp 03:13 Eyes: Periorbital structures: appear normal, Conjunctiva: normal, no exudate, no injection, Sclera: no appreciated abnormality, Lids and lashes: appear normal, bilaterally, 03:13 ENT: External ear(s): are unremarkable, Nose: is normal, Mouth: Lips: moist, Oral mucosa: pink and intact, moist, Posterior pharynx: is normal, airway is patent, no erythema, no exudate, 03:13 Neck: ROM/movement: is normal, is supple, without pain, no range of motions limitations, 03:13 Chest/axilla: Inspection: normal, 03:13 Cardiovascular: Rate: normal, Rhythm: regular, Edema: is not appreciated, JVD: is not appreciated, 03:13 Respiratory: the patient does not display signs of respiratory distress, Respirations: normal, no use of accessory muscles, no retractions, labored breathing, is not present, Breath sounds: are clear throughout, no decreased breath sounds, no stridor, no wheezing, 03:13 Abdomen/GI: Inspection: abdomen appears normal, Palpation: abdomen is soft and non-tender, in all quadrants, 03:13 Back: pain, is absent, ROM is normal, 03:13 Neuro: Orientation: to person, place \T\ time. Mentation: is normal, Motor: moves all fours, strength is normal, 03:33 ECG was reviewed by the Attending Physician. cp Vital Signs: 02:50 BP 139 / 88; Pulse 99; Resp 17 S; Temp 98.1(O); Pulse Ox 98% on R/A; Weight 77.11 kg lg3 (R); Height 5 ft. 6 in. (R); Pain 0/10; 04:47 BP 121 / 82; Pulse 82; Resp 16 S; Temp 97.9(O); Pulse Ox 99% on R/A; lg3 02:50 Body Mass Index 27.44 (77.11 kg, 167.64 cm) lg3 02:50 Pain Scale: Adult lg3 MDM: 02:48 Patient medically screened. cp 03:45 Differential diagnosis: Anemia Anxiety Reaction asthma, Bronchitis Myocardial cp Infarction pneumonia, Pneumothorax pulmonary edema, Pulmonary Embolism reactive airway disease. 04:23 Data reviewed: vital signs, nurses notes, lab test result(s), EKG. I considered the cp following discharge prescriptions or medication management in the emergency department Medications were administered in the Emergency Department. See MAR. Response to treatment: the patient's symptoms have markedly improved after treatment, VSS. Patient reports symptoms markedly improved and resting comfortably in exam room. 02/20 03:02 Order name: Basic Metabolic Panel; Complete Time: 03:55 cp 02/20 03:55 Interpretation: Normal except: GFR 88. cp 02/20 03:02 Order name: CBC with Diff; Complete Time: 03:55 cp 02/20 03:02 Order name: D-Dimer; Complete Time: 03:55 cp 02/20 03:55 Interpretation: Reviewed. cp 02/20 03:02 Order name: Magnesium; Complete Time: 03:55 cp 02/20 03:02 Order name: NT PRO-BNP; Complete Time: 03:55 cp 02/20 03:02 Order name: PT-INR; Complete Time: 03:55 cp 02/20 03:02 Order name: Troponin HS; Complete Time: 03:55 cp 02/20 03:55 Interpretation: Reviewed. cp 02/20 03:02 Order name: UDS; Complete Time: 04:20 cp 02/20 03:02 Order name: Urine Microscopic Only; Complete Time: 04:20 cp 02/20 03:02 Order name: XRAY Chest (1 view) cp 02/20 03:02 Order name: EKG; Complete Time: 03:03 cp 02/20 03:02 Order name: Cardiac monitoring; Complete Time: 03:40 cp 02/20 03:02 Order name: EKG - Nurse/Tech; Complete Time: 03:40 cp 02/20 03:02 Order name: IV Saline Lock; Complete Time: 03:10 cp 02/20 03:02 Order name: Labs collected and sent; Complete Time: 03:10 cp 02/20 03:02 Order name: O2 Per Protocol; Complete Time: 03:40 cp 02/20 03:02 Order name: O2 Sat Monitoring; Complete Time: 03:40 cp EC:33 Rate is 92 beats/min. Rhythm is regular. NH interval is normal. QRS interval is normal. cp QT interval is normal. T waves are Inverted in lead aVR. Interpreted by me. Reviewed by me. Administered Medications: 03:40 Drug: Ativan IVP 1 mg IVP once Route: IVP; Site: left antecubital; bm8 04:46 Follow up: Response: No adverse reaction; Marked relief of symptoms; Anxiety decreased lg3 Disposition Summary: 02/21/24 04:25 Discharge Ordered Notes: Location: Home cp Problem: new cp Symptoms: have improved cp Condition: Stable cp Diagnosis - Anxiety disorder, unspecified cp Followup: cp - With: Private Physician - When: 2 - 3 days - Reason: Recheck today's complaints Discharge Instructions: - Discharge Summary Sheet cp - Panic Attack cp - Generalized Anxiety Disorder, Adult cp - Managing Anxiety, Adult cp Forms: - Medication Reconciliation Form cp - Antibiotic Education cp - Prescription Opioid Use cp - Patient Portal Instructions cp - Leadership Thank You Letter cp Prescriptions: - Vistaril 25 mg Oral capsule - take 1 capsule ORAL route every 6 hours as needed for anxiety; 20 capsule; cp Refills: 0, Product Selection Permitted Signatures: Dispatcher [employer] EDMS Pepe Winters PA PA cp Able, Lacie, RN RN lg3 Lexa Shay, RN RN bm8 Corrections: (The following items were deleted from the chart) 03:03 03:03 BASIC METABOLIC PANEL+C.LAB.BRZ ordered. EDMS EDMS 03:03 03:03 CBC+H.LAB.BRZ ordered. EDMS EDMS 03:03 03:03 D-DIMER+COAG.LAB.BRZ ordered. EDMS EDMS 03:03 03:03 MAGNESIUM+C.LAB.BRZ ordered. EDMS EDMS 03:03 03:03 PROBNP+C.LAB.BRZ ordered. EDMS EDMS 03:03 03:03 PROTIME (+INR)+COAG.LAB.BRZ ordered. EDMS EDMS 03:03 03:03 Troponin High Sensitivity+C.LAB.BRZ ordered. EDMS EDMS 03:03 03:03 URINE DRUG SCREEN+UC.LAB.BRZ ordered. EDMS EDMS 03:03 03:03 Urine Microscopic+U.LAB.BRZ ordered. EDMS EDMS 03:03 03:03 Test, Urine+UC.LAB.BRZ ordered. EDMS EDMS
--- NOTE | 2024-02-21 04:26 | ER ---
Nurse's Notes [facility] Name: Stephanie Teixeira Age: 43 yrs Sex: Female : 1980 Arrival Date: 02/21/2024 Time: 02:43 Bed 17 Private MD: Diagnosis: Anxiety disorder, unspecified Presentation: 02/20 02:50 Chief complaint: Patient states: SOB X30 min. denies pain. Coronavirus screen: Client lg3 denies travel out of the [place] in the last 14 days. At this time, the client does not indicate any symptoms associated with coronavirus-19. Ebola Screen: No symptoms or risks identified at this time. Initial Sepsis Screen: Does the patient meet any 2 criteria? No. Patient's initial sepsis screen is negative. Does the patient have a suspected source of infection? No. Patient's initial sepsis screen is negative. Risk Assessment: Do you want to hurt yourself or someone else? Patient reports no desire to harm self or others. Onset of symptoms was February 21, 2024. 02:50 Method Of Arrival: Ambulatory lg3 02:50 Acuity: VANESSA 3 lg3 Triage Assessment: 02:59 General: Appears in no apparent distress. uncomfortable, Behavior is cooperative, lg3 anxious. Pain: Denies pain. EENT: No deficits noted. No signs and/or symptoms were reported regarding the EENT system. Neuro: No deficits noted. Echevarria Agitation-Sedation Scale (RASS): 0 - Alert and Calm Level of Consciousness is awake, alert, obeys commands, Oriented to person, place, time, situation. Cardiovascular: No deficits noted. Denies chest pain, Heart tones S1 S2 present Capillary refill < 3 seconds Clubbing of nail beds is absent JVD is absent Patient's skin is warm and dry. Respiratory: Reports shortness of breath Airway is patent Respiratory effort is even, unlabored, Respiratory pattern is regular, symmetrical, Breath sounds are clear bilaterally. Onset: The symptoms/episode began/occurred just prior to arrival, the patient has mild shortness of breath. GI: No deficits noted. No signs and/or symptoms were reported involving the gastrointestinal system. Abdomen is round non-distended. : No deficits noted. No signs and/or symptoms were reported regarding the genitourinary system. Derm: No deficits noted. No signs and/or symptoms reported regarding the dermatologic system. Skin is intact, is healthy with good turgor, Skin is dry, Skin is normal, Skin temperature is warm. Musculoskeletal: No deficits noted. No signs and/or symptoms reported regarding the musculoskeletal system. Circulation, motion, and sensation intact. Range of motion: intact in all extremities. 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 - Infectious Disease History:: Denies. - Social history:: Smoking status: Patient denies any tobacco usage or history of. Patient/guardian denies using alcohol, street drugs. Screenin:01 [facility] ED Fall Risk Assessment (Adult) History of falling in the last 3 months, lg3 including since admission No falls in past 3 months (0 pts) Confusion or Disorientation No (0 pts) Intoxicated or Sedated No (0 pts) Impaired Gait No (0 pts) Mobility Assist Device Used No (0 pt) Altered Elimination No (0 pt) Score/Fall Risk Level 0 - 2 = Low Risk Oriented to surroundings, Maintained a safe environment, Educated pt \T\ family on fall prevention, incl call for assistance when getting out of bed, Assessed \T\ reinforced patient's understanding of fall precautions. Abuse screen: Denies threats or abuse. Denies injuries from another. Nutritional screening: No deficits noted. Tuberculosis screening: No symptoms or risk factors identified. Assessment: 03:01 General: see triage assessment. Cardiovascular: No deficits noted. Rhythm is sinus lg3 tachycardia. 04:45 Reassessment: Patient appears in no apparent distress at this time. Patient and/or lg3 family updated on plan of care and expected duration. Pain level reassessed. Patient is alert, oriented x 3, equal unlabored respirations, skin warm/dry/pink. Patient denies pain at this time. Patient states feeling better. Patient states symptoms have improved. Vital Signs: 02:50 BP 139 / 88; Pulse 99; Resp 17 S; Temp 98.1(O); Pulse Ox 98% on R/A; Weight 77.11 kg lg3 (R); Height 5 ft. 6 in. (R); Pain 0/10; 04:47 BP 121 / 82; Pulse 82; Resp 16 S; Temp 97.9(O); Pulse Ox 99% on R/A; lg3 02:50 Body Mass Index 27.44 (77.11 kg, 167.64 cm) lg3 02:50 Pain Scale: Adult lg3 ED Course: 02:45 Patient arrived in ED. jj6 02:48 Pepe Winters PA is PHCP. cp 02:48 Pepe Jama MD is Attending Physician. cp 02:58 Smiley Culp RN is Primary Nurse. lg3 02:59 Triage completed. lg3 02:59 Arm band placed on right wrist. lg3 03:01 Patient has correct armband on for positive identification. Placed in gown. Bed in low lg3 position. Call light in reach. Side rails up X 1. Client placed on continuous cardiac and pulse oximetry monitoring. NIBP monitoring applied. site monitor on. Door closed. Noise minimized. Warm blanket given. 03:09 Inserted saline lock: 20 gauge in left antecubital area, using aseptic technique. Blood rv1 collected. 03:10 Basic Metabolic Panel Sent. rv1 03:10 CBC with Diff Sent. rv1 03:10 D-Dimer Sent. rv1 03:10 Magnesium Sent. rv1 03:10 NT PRO-BNP Sent. rv1 03:10 PT-INR Sent. rv1 03:10 Troponin HS Sent. rv1 03:14 XRAY Chest (1 view) In Process Unspecified. EDMS 03:46 EKG done, by ED staff, reviewed by Pepe MYERS. bm8 04:46 No provider procedures requiring assistance completed. IV discontinued, intact, lg3 bleeding controlled, No redness/swelling at site. Pressure dressing applied. Administered Medications: 03:40 Drug: Ativan IVP 1 mg IVP once Route: IVP; Site: left antecubital; bm8 04:46 Follow up: Response: No adverse reaction; Marked relief of symptoms; Anxiety decreased lg3 Medication: 04:46 VIS not applicable for this client. lg3 Outcome: 04:25 Discharge ordered by . cp 04:46 Discharged to home ambulatory, lg3 04:46 Condition: stable 04:46 Discharge instructions given to patient, Instructed on discharge instructions, follow up and referral plans. medication usage, Demonstrated understanding of instructions, follow-up care, medications, 04:47 Patient left the ED. lg3 Signatures: Dispatcher [employer] EDMS Pepe Winters PA PA cp Able, Lacie, RN RN lg3 Keri Aragon6 Alexsandra Mcfadden 1 Lexa Shay RN RN bm8
[2024-02-21 15:06] VITALS: BP 139/88; TEMP 98.1; O2SAT 98
--- NOTE | 2024-02-21 23:20 | RAD REPORT ---
EXAM DESCRIPTION: RAD - Chest Single View - 02/21/2024 3:12 am CLINICAL HISTORY: SOB COMPARISON: Chest x-ray 02/10/2024 TECHNIQUE: Single AP view of the chest. FINDINGS: Lung volumes adequate. Cardiac silhouette is normal in size. No pneumothorax. No large pleural effusion. No focal consolidation. No acute bony finding. IMPRESSION: No evidence of acute cardiopulmonary disease. Electronically signed by: Hanny Callaway MD 02/21/2024 05:56 AM CDT Due to temporary technical issues with the PACS/Fluency reporting system, reports are being signed by the in house radiologists without review as a courtesy to insure prompt reporting. The interpreting radiologist is fully responsible for the content of the report.
--- NOTE | 2024-02-23 14:44 | EKG ---
Test Date: 2024-02-21 Test Time: 03:27:02 License Issuer: FELICIANO MEASUREMENT RESULTS: Intervals: Rate: 92 MA: 150 QRSD: 74 QT: 356 QTc: 440 [place]: P: 45 MA: 150 QRS: 25 T: 10 INTERPRETIVE STATEMENTS: Normal sinus rhythm Normal ECG Compared to ECG 02/10/2024 23:16:38 No significant changes Electronically Signed On 02-23-24 14:39:27 CDT by Joey Byrd
== END 2024-02-21 04:47 | disposition home or self-care (01) ==
LOC: ER 02:43
DX: F41.9 Anxiety disorder, unspecified (principal)
CPT/HCPCS: 36415; 71045; 80048; 80307; 81015; 83735; 83880; 84484; 85025; 85379; 85610; 93005; 96374; 99285

== ENCOUNTER 2024-03-01 15:36 | Emergency (ER) | payer BC ==
--- OUTSIDE RECORDS SUMMARY | 2024-03-01 15:40 | XMS REPORT | Continuity of Care Document ---
Author Name Unknown Address [address] [place] [address] [facility] thconnect Address [address] [place] [address] Care Team Providers Care Lacquer Sizer Name Role Phone TAE BOWSER Primary Care Physician Unavailab le [email or web address]_S Attending Clinician UnavailBrittani Baker MD Attending Clinician BRITTANI MCRAE Attending Clinician Unavailable WILFRED_GCBZW_Kadiyala_S Admitting Clinician UnavailBRITTANI Baker Admitting Clinician Unavailable Payers Payer Name Policy Type Policy Number Effective Date Expirati on Date Source Problems Condition Name Condition Details Condition Category Status Onset Date Resolution Date Last Treatment Date Treating Clinician Comments Source No known active problems No known active problems Disease [facility] Allergies, Adverse Reactions, Alerts Allergy Name Allergy Type Status Severity Reaction(s) Onset Date Inactive Date Treating Clinician Comments Source NO KNOWN ALLERGIE S Drug Class Active [facility] Social History Social Habit Start Date Stop Date Quantity Comments Source Exposure to SARS-CoV-2 (event) 2022-09-16 00:00:00 2022-09-26 21:49:00 Not sure [facility] Sex Assigned At 1980 00:00:00 1980 00:00:00 [facility] Smoking Status Start Date Stop Date Source Tobacco smoking consumption unknown [facility] Medications Ordered Medication Name Filled Medication Name Start Date Stop Date Current Medication? Ordering Clinician Indication Dosage Frequency Signature (SIG) Comments Components Source No known medications 2021-10 21:54: 21 No No known medication s [facility] Vital Signs Vital Name Observation Time Observation Value Comments Be chou Systolic blood pressure 2022-09-27 06:37:00 143 mm[Hg] [facility] Diastolic blood pressure 2022-09-27 06:37:00 83 mm[Hg] [facility] Heart rate 2022-09-27 06:37:00 104 /min [facility] Respiratory rate 2022-09-27 06:37:00 20 /min [facility] Oxygen saturation in Arterial blood by Pulse oximetry 2022-09-27 06:37:00 97 /min [facility] Body temperature 2022-09-27 03:52:00 37.5 Magali [facility] Body height 2022-09-27 03:52:00 167.6 cm [facility] Body weight 2022-09-27 03:52:00 78.472 kg [facility] BMI 2022-09-27 03:52:00 27.92 kg/m2 [facility] Procedures Procedure Date / Time Performed Performing Clinicia n Source EKG-12 LEAD 2022-09-27 06:39:11 Brittani Mcrae [facility] XR CHEST 1 VW 2022-09-27 05:49:47 Brittani Mcrae [facility] ACUTE CARE ARTERIAL BLOOD GAS 2022-09-27 04:33:00 Brittani Mcrae [facility] POCT TEST 2022-09-27 04:26:00 Brittani Mcrae [facility] LIPASE 2022-09-27 04:23:00 Brittani Mcrae [facility] TROPONIN I 2022-09-27 04:23:00 Brittani Mcrae [facility] COMP. METABOLIC PANEL (80108) 2022-09-27 04:23:00 Brittani Mcrae [facility] CBC WITH DIFF 2022-09-27 04:23:00 Brittani Mcrae [facility] D-DIMER 2022-09-27 04:23:00 ElviaAngelica barthkarina Be [facility] N-TERMINAL PRO-BNP 2022-09-27 04:23:00 Brittani Mcrae [facility] NOTICE OF PRIVACY PRACTICES 2022-09-27 03:48:14 Doctor Unassigned, [place] [facility] CONSENT/REFUSAL FOR DIAGNOSIS AND TREATMENT 2022-09-27 03:46:24 Doctor Unassigned, [place] [facility] Encounters Start Date/Time End Date/Time Encounter Type Admission Type Attending Clinicians Care Facility Care Department Encounter ID Source 2023-08-16 00:00:00 2023-08-16 00:00:00 Outpatient GC_GCBZW_Ka diyala_S [facility] [id number] [facility] 2022-09-26 21:55:00 2022-09-27 00:39:00 Emergency Brittani Mcrae [facility] [id number] [facility] 2022-09-26 21:55:00 2022-09-27 00:39:00 Emergency X BRITTANI MCRAE [facility] ERT [id number] [facility] Results Test Description Test Time Test Comments Results Result Co mments Source [facility] [id number] 05:11:49* Test Item Value Reference Range Interpretation Comments TROPONIN I (test code = 9879879000) 0.001 ng/mL See_Comment [Automated message] The system [...] of biotin. Lab Interpretation (test code = 88843-6) Normal [facility] [id number] 05:08:53* Test Item Value Reference Range Interpretation Comme nts NT-proBNP (test code = 2558769424) 26 pg/mL See_Comment [Automated message] The system which generated this result transmitted reference range: <=125. The reference range was not used to interpret this result as normal/abnormal. SHWETHA (test code = SHWETHA) Biotin has been reported to cause a negative bias, interpret results relative to patient's use of biotin. Lab Interpretation (test code = 75402-3) Normal [facility] WITH [id number] 05:01:52* Test Item Value Reference Range Interpretation Comme nts WBC (test code = 6690-2) See_Comment [Automated [employer]] The system which generated this result transmitted reference range: 4.30 - 11.10 10*3/?L. The reference range was not used to interpret this result as normal/abnormal. RBC (test code = 789-8) See_Comment [Automated [employer]] The system which generated this result transmitted [...] 33.8 g/dL 31.6-35.1 RDW-SD (test code = 41767-7) 40.3 fL 39.0-49.9 RDW-CV (test code = 788-0) 12.6 % 12.0-15.5 PLT (test code = 777-3) See_Comment H [Automated messa ge] The system which generated this result transmitted reference range: 166 - 358 10*3/?L. The reference range was not used to interpret this result as normal/abnormal. MPV (test code = 41389-7) 9.9 fL 9.5-12.9 NRBC/100 WBC (test code = 0292330473) See_Comment [Automated me ssage] The system which generated this result transmitted reference range: 0.0 - 10.0 /100 WBCs. The reference range was not used to interpret this result as normal/abnormal. NRBC x10^3 (test code = 1611771208) See_Comment [Automated messa ge] The system which generated this result transmitted reference range: 10*3/?L. The reference range was not used to interpret this result as normal/abnormal. GRAN MAT (NEUT) % (test code = 770-8) 49.7 % IMM GRAN % (test code = 4115539556) 0.30 % LYMPH % (test code = 736-9) 39.5 % MONO % (test code = 5905-5) 8.7 % EOS % (test code = 713-8) 1.2 % BASO % (test code = 706-2) 0.6 % GRAN MAT x10^3(ANC) (test code = 8103452785) 4.66 10*3/uL 1.88-7.09 IMM GRAN x10^3 (test code = 1166380388) 0.03 10*3/uL 0.00-0.06 LYMPH x10^3 (test code = 731-0) 3.71 10*3/uL 1.32-3.29 H MONO x10^3 (test code = 742-7) 0.82 10*3/uL 0.33-0.92 EOS x10^3 (test code = 711-2) 0.11 10*3/uL 0.03-0.39 BASO x10^3 (test code = 704-7) 0.06 10*3/uL 0.01-0.07 Lab Interpretation (test code = 19981-5) Abnormal [facility]. METABOLIC PANEL (52448)2022-09-27 04:59:52* Test Item Value Reference Range Interpretation Comme nts NA (test code = 1013674228) 138 mmol/L 135-145 K (test code = 7029828536) 3.9 mmol/L 3.5-5.0 CL (test code = 5345949208) 105 mmol/L 98-108 CO2 TOTAL (test code = 8507319854) 23 mmol/L 23-31 AGAP (test code = 7240963902) 2-16 BUN (test code = 8505153502) 16 mg/dL 7-23 GLUCOSE (test code = 4221978294) 106 mg/dL 70-110 CREATININE (test code = 4195991439) 0.78 mg/dL 0.50-1.04 TOTAL BILI (test code = 9107926995) 0.5 mg/dL 0.1-1.1 CALCIUM (test code = 9815031408) 9.6 mg/dL 8.6-10.6 T PROTEIN (test code = 1591842072) 7.5 g/dL 6.3-8.2 ALBUMIN (test code = 1603019319) 4.6 g/dL 3.5-5.0 ALK PHOS (test code = 1285745600) 72 U/L 34-122 ALTv (test code = 1742-6) 25 U/L 5-35 AST(SGOT) (test code = 1436508367) 22 U/L 13-40 eGFR (test code = 0417515164) mL/min/1.73m2 SHWETHA (test code = SHWETHA) Association [...] or urine or abnormalities in imaging tests). [facility] 04:59:32* Test Item Value Reference Range Interpretation Comme [facility] LIPASE (test code = 1558819044) 139 U/L 0-220 Lab Interpretation (test cod e = 81255-1) Normal [facility] [id number] 04:26:00* Test Item Value Reference Range Interpretation Comme nts POCT PREG (test code = 1605) Negative On board controls acceptable with C Line (test code = 3574) Present POCT PREG LOT # (test code = 3575) [id number] POCT PREG TEST DATE ( test code = 3576) 01/18/2024 Lab Interpretation (test cod e = 21833-7) Normal [facility]"
[2024-03-01 16:29] LABS: Absolute Eosinophils 0.2 K/uL (0-0.5); Absolute Lymphocytes (CBC) 2.4 K/uL (0.7-4.9); Absolute Monocytes 0.5 K/uL (0.1-1.3); Absolute Neutrophil 3.1 K/uL (1.8-8.0); Basophils % 0.8 % (0-1.3); Eosinophils % 2.7 % (0-4.4); Hematocrit 40.8 % (36.0-45.0); Lymphocytes % 39.2 % (15.3-44.8); MCH 30.7 pg (27.0-35.0); MCHC 34.3 g/dL (32.0-36.0); MCV 89.4 fL (80-100); MPV 7.9 fL (7.6-11.3); Monocytes % 7.6 % (3.3-12.3); Neutrophils % 49.7 % (41.7-73.7); Nucleated Red Blood Cells % 0.4 % (0-0); Platelets 355 thou/uL (152-406); RBC Red Blood Cell Count 4.56 M/uL (3.86-4.86); Red Cell Distribution Width 12.7 % (12.1-15.2)
[2024-03-01 16:48] LABS: ALT/SGPT 25 U/L (13-56); AST/SGOT 12 U/L (15-37); Albumin 3.8 g/dL (3.4-5.0); Albumin/Globulin Ratio 1.1 (1.1-1.8); Alkaline Phosphatase 61 U/L (45-117); Anion Gap 6.8 mEq/L (5.0-15.0); BUN Blood Urea Nitrogen 11 mg/dL (7-18); Bicarbonate 27 mEq/L (21-32); Bilirubin Total 0.5 mg/dL (0.2-1.0); Globulin 3.6 g/dL (2.3-3.5); Glomerular Filtration Rate 111 ml/min (=/>90); Glucose Level 96 mg/dL (74-106); Lipase 58 U/L (13-75); Potassium 3.8 mEq/L (3.5-5.1); Protein, Total 7.4 g/dL (6.4-8.2); Sodium Level 138 mEq/L (136-145)
[2024-03-01 16:50] LABS: Troponin High Sensitivity < 3.0 pg/mL (<58.9)
--- NOTE | 2024-03-01 16:52 | RAD REPORT ---
EXAM DESCRIPTION: RAD - Chest Single View - 03/01/2024 4:45 pm CLINICAL HISTORY: CHEST PAIN COMPARISON: <Comparisons> FINDINGS: Lines: None. Lungs: No evidence of edema or pneumonia. Pleural: No significant pleural effusions or pneumothorax. Cardiac: The heart size is within normal limits. Mediastinum: Within normal limits. Bones: No acute fractures. Other: None IMPRESSION: No acute cardiopulmonary disease.
--- NOTE | 2024-03-01 17:34 | RAD REPORT ---
EXAM DESCRIPTION: US - Abdomen Exam Limited - 03/01/2024 4:40 pm CLINICAL HISTORY: ABD PAIN COMPARISON: No comparisons FINDINGS: The gallbladder demonstrates no gallstones. No pericholecystic fluid or gallbladder wall t hickening. The common bile duct is normal measuring 3 mm. The liver demonstrates no findings of intrahepatic biliary dilatation. IMPRESSION: Unremarkable examination. Negative for cholelithiasis.
--- NOTE | 2024-03-01 17:55 | ER ---
Nurse's Notes [facility] Name: Stephanie Teixeira Age: 43 yrs Sex: Female : 1980 Arrival Date: 03/01/2024 Time: 15:36 Bed 7 Private MD: Diagnosis: Epigastric pain;Chest pain, unspecified Presentation: 03/01 15:43 Chief complaint: Patient states: SOB for 1 month. Upper abdominal pain after eating. ll1 3rd visit in less than 2 months. No fever. Coronavirus screen: Client denies travel out of the [place] in the last 14 days. difficulty breathing, Client presents with at least one sign or symptom that may indicate coronavirus-19. Standard/surgical mask placed on the client. Ebola Screen: Patient denies travel to an Ebola-affected area in the 21 days before illness onset. Initial Sepsis Screen: Does the patient meet any 2 criteria? No. Patient's initial sepsis screen is negative. Does the patient have a suspected source of infection? No. Patient's initial sepsis screen is negative. Risk Assessment: Do you want to hurt yourself or someone else? Patient reports no desire to harm self or others. Onset of symptoms was January 31, 2024. 15:43 Method Of Arrival: Ambulatory ll1 15:43 Acuity: VANESSA 3 ll1 Triage Assessment: 15:44 General: Appears uncomfortable, Behavior is calm, cooperative, appropriate for age. ll1 Pain: Complains of pain in epigastric Pain currently is 7 out of 10 on a pain scale. Quality of pain is described as aching. Respiratory: Reports shortness of breath Onset: The symptoms/episode began/occurred 1 month ago, the patient has mild shortness of breath. GI: Reports upper abdominal pain, intolerance of food. Historical: - Allergies: 15:43 No Known Allergies; ll1 - PMHx: 15:43 Anxiety; panic attack; ll1 - Immunization history:: Adult Immunizations up to date. - Infectious Disease History:: Denies. - Social history:: Smoking status: Patient denies any tobacco usage or history of. Screenin:[facility] ED Fall Risk Assessment (Adult) History of falling in the last 3 months, ko1 including since admission No falls in past 3 months (0 pts) Confusion or Disorientation No (0 pts) Intoxicated or Sedated No (0 pts) Impaired Gait No (0 pts) Mobility Assist Device Used No (0 pt) Altered Elimination No (0 pt) Score/Fall Risk Level 0 - 2 = Low Risk Oriented to surroundings, Maintained a safe environment, Educated pt \T\ family on fall prevention, incl call for assistance when getting out of bed, Assessed \T\ reinforced patient's understanding of fall precautions, Provided non-skid footwear, Hourly rounding (assess needs \T\ fall precautionary measures) done, Used ambulatory aids as needed (educated on \T\ assisted with), Used gait belt as appropriate. Abuse screen: Denies threats or abuse. Denies injuries from another. Nutritional screening: No deficits noted. Tuberculosis screening: No symptoms or risk factors identified. Assessment: 15:50 General: Appears in no apparent distress. Behavior is calm, cooperative, appropriate ko1 for age. Pain: Complains of pain in epigastric area. Neuro: No deficits noted. Cardiovascular: Rhythm is regular. Respiratory: Airway is patent Respiratory effort is even, unlabored, Breath sounds are clear bilaterally. GI: No deficits noted. : No deficits noted. EENT: No deficits noted. Derm: No deficits noted. Musculoskeletal: No deficits noted. Vital Signs: 15:43 BP 142 / 96; Pulse 77; Resp 17; Temp 97.1; Pulse Ox 100% ; Weight 77.11 kg; Height 5 ll1 ft. 6 in. ; Pain 7/10; 17:54 BP 138 / 84; Pulse 74; Resp 16; Pulse Ox 99% ; ko1 15:43 Body Mass Index 27.44 (77.11 kg, 167.64 cm) ll1 15:43 Pain Scale: Adult ll1 ED Course: 15:38 Patient arrived in ED. rg4 15:39 Alejandro Hayward DO is Attending Physician. ms3 15:43 Arm band placed on. ll1 15:45 Triage completed. ll1 15:50 Patient has correct armband on for positive identification. Bed in low position. Call ko1 light in reach. Side rails up X2. Provided Education on: na. Pulse ox on. NIBP on. Door closed. Noise minimized. Lights dimmed. Warm blanket given. Pillow given. 16:17 Amelie Rodriguez, RN is Primary Nurse. ko1 16:24 EKG done, by ED staff, reviewed by Alejandro Hayward DO. em1 16:24 Inserted saline lock: 20 gauge in right antecubital area, using aseptic technique. ll1 Blood collected. 16:42 US Abdomen Limited In Process Unspecified. EDMS 16:47 CXR XRAY In Process Unspecified. EDMS 17:54 Stanley Vasquez MD is Referral Physician. ms3 17:54 No provider procedures requiring assistance completed. IV discontinued, intact, ko1 bleeding controlled, No redness/swelling at site. Pressure dressing applied. Administered Medications: No medications were administered Medication: 15:50 VIS not applicable for this client. ko1 Outcome: 17:54 Discharge ordered by . ms3 17:54 Discharged to home ambulatory, with family, ko1 17:54 Condition: stable 17:54 Discharge instructions given to patient, family, Instructed on discharge instructions, follow up and referral plans. medication usage, Demonstrated understanding of instructions, follow-up care, medications, Prescriptions given X 1, 18:00 Patient left the ED. ko1 Signatures: Dispatcher [employer] Mitchell Ortiz em1 Poly Perkins rg4 Carolyn Oliveira, RN RN ll1 Alejandro Hayward DO DO ms3 Amelie Rodriguez, RN RN ko1
--- NOTE | 2024-03-01 17:55 | EDPHYS ---
Physician Documentation [facility] Name: Stephanie Teixeira Age: 43 yrs Sex: Female : 1980 Arrival Date: 03/01/2024 Time: 15:36 Bed 7 Private MD: ED Physician Alejandro Hayward HPI: 03/01 17:10 This 43 yrs old Female presents to ER via Ambulatory with complaints of ms3 Shortness Of Breath, Upper Abd Pain. 17:10 43-year-old female with past medical history of anxiety presents to the emergency ms3 department for chest pain has been ongoing for 1 month and intermittent. Patient states the episodes last between 2 minutes and 30 minutes. She notes this is her third ER visit for the symptoms. At the pains worst it is a 7/10 and she is currently a 2/10. The pain is exacerbated with eating. Patient denies alleviating factors. Historical: - Allergies: 15:43 No Known Allergies; ll1 - PMHx: 15:43 Anxiety; panic attack; ll1 - Immunization history:: Adult Immunizations up to date. - Infectious Disease History:: Denies. - Social history:: Smoking status: Patient denies any tobacco usage or history of. ROS: 17:10 Constitutional: Negative for fever, and chills. Neck: Negative for injury, pain, and ms3 swelling, 17:10 Cardiovascular: Positive for chest pain, 17:10 Respiratory: Positive for shortness of breath, 17:10 Abdomen/GI: Positive for abdominal pain, Exam: 17:09 ECG was reviewed by the Attending Physician. ms3 17:10 Constitutional: This is a well developed, well nourished patient who is awake, alert, ms3 and in no acute distress. Head/Face: Normocephalic, atraumatic. Chest/axilla: Normal chest wall appearance and motion. Nontender with no deformity. Cardiovascular: Regular rate and rhythm with a normal S1 and S2. No gallops, murmurs, or rubs. Normal PMI, no JVD. No pulse deficits. Respiratory: Lungs have equal breath sounds bilaterally, clear to auscultation and percussion. No rales, rhonchi or wheezes noted. No increased work of breathing, no retractions or nasal flaring. Skin: Warm, dry with normal turgor. Normal color with no rashes, no lesions, and no evidence of cellulitis. 17:10 Abdomen/GI: Inspection: abdomen appears normal, Bowel sounds: normal, Palpation: mild abdominal tenderness, in the epigastric area, Vital Signs: 15:43 BP 142 / 96; Pulse 77; Resp 17; Temp 97.1; Pulse Ox 100% ; Weight 77.11 kg; Height 5 ll1 ft. 6 in. ; Pain 7/10; 17:54 BP 138 / 84; Pulse 74; Resp 16; Pulse Ox 99% ; ko1 15:43 Body Mass Index 27.44 (77.11 kg, 167.64 cm) ll1 15:43 Pain Scale: Adult ll1 MDM: 16:12 Patient medically screened. ms3 17:10 Differential diagnosis: Pancreatitis versus cholelithiasis versus gastritis versus ME. ms3 17:55 Data reviewed: vital signs, nurses notes, lab test result(s), EKG, radiologic studies, ms3 and as a result, I will discharge patient. Independent interpretation of the following test(s) in the Emergency Department EKG: See my EKG interpretation above X-Ray: My interpretation is CXR image reviewed by my does not show PNA, Pulmonary edema. Counseling: I had a detailed discussion with the patient and/or guardian regarding the historical points, exam findings, and any diagnostic results supporting the discharge/admit diagnosis, lab results, radiology results, the need for outpatient follow up, to return to the emergency department if symptoms worsen or persist or if there are any questions or concerns that arise at home. Special discussion: Based on the patient's history, exam, and Dx evaluation, there is no indication for emergent intervention or inpatient Tx. It is understood by the patient/guardian that if the Sx's persist or worsen they need to return immediately for re-evaluation. ED course: Discussed negative troponin, normal EKG, negative ultrasound, normal chest x-ray. Patient to follow-up with Dr. Vasquez in 2 to 3 days and primary care physician in 2 to 3 days. Patient understands and agrees with plan. All questions were answered. Return precautions discussed include worsening symptoms, or any other concerns.. 03/01 16:11 Order name: CBC with Diff; Complete Time: 17:14 ms3 03/01 16:11 Order name: CMP; Complete Time: 17:14 ms3 03/01 16:11 Order name: Lipase; Complete Time: 17:14 ms3 03/01 16:11 Order name: Troponin High Sensitivity; Complete Time: 17:14 ms3 03/01 16:11 Order name: US Abdomen Limited; Complete Time: 17:50 ms3 03/01 16:11 Order name: CXR XRAY; Complete Time: 17:14 ms3 03/01 16:11 Order name: IV Saline Lock; Complete Time: 16:24 ms3 03/01 16:11 Order name: Labs collected and sent; Complete Time: 16:24 ms3 03/01 16:11 Order name: EKG - Nurse/Tech; Complete Time: 16:24 ms3 EC:09 Rate is 77 beats/min. Rhythm is regular. QRS [place] is Normal. [place] interval is normal. QRS ms3 interval is normal. Clinical impression: Normal ECG. Interpreted by me. Reviewed by me. Administered Medications: No medications were administered Disposition Summary: 03/01/24 17:54 Discharge Ordered Notes: Location: Home ms3 Condition: Stable ms3 Diagnosis - Epigastric pain ms3 - Chest pain, unspecified ms3 Followup: ms3 - With: Private Physician - When: 2 - 3 days - Reason: Recheck today's complaints Followup: ms3 - With: Stanley Vasquez MD - When: 2 - 3 days - Reason: Recheck today's complaints Discharge Instructions: - Discharge Summary Sheet ms3 - Abdominal Pain, Adult ms3 - Nonspecific Chest Pain, Adult ms3 Forms: - Medication Reconciliation Form ms3 - Antibiotic Education ms3 - Prescription Opioid Use ms3 - Patient Portal Instructions ms3 - Leadership Thank You Letter ms3 Prescriptions: - Pepcid 20 mg Oral tablet - take 1 tablet ORAL route every 12 hours for 7 days; 14 tablet; Refills: 0, ms3 Product Selection Permitted Signatures: Dispatcher [employer] Carolyn Boo RN RN ll1 Alejandro Hayward DO DO ms3
[2024-03-01 19:21] VITALS: BP 138/84; TEMP 97.1; O2SAT 99
--- NOTE | 2024-03-02 11:00 | EKG ---
Test Date: 2024-03-01 Test Time: 16:20:43 Press Assistant: JOSHUA MEASUREMENT RESULTS: Intervals: Rate: 77 IN: 146 QRSD: 76 QT: 392 QTc: 443 [place]: P: 28 IN: 146 QRS: 13 T: 2 INTERPRETIVE STATEMENTS: Normal sinus rhythm Normal ECG Compared to ECG 02/21/2024 03:27:02 No significant changes Electronically Signed On 03-02-24 10:59:10 CDT by Hal Garibay
== END 2024-03-01 18:00 | disposition home or self-care (01) ==
LOC: ER 15:36
DX: R07.9 Chest pain, unspecified (principal); R10.13 Epigastric pain; F41.9 Anxiety disorder, unspecified
CPT/HCPCS: 36415; 71045; 76705; 80053; 83690; 84484; 85025; 93005; 99284